=== PATIENT | female | born 1995 | race Caucasian/White ===

== ENCOUNTER 2017-04-07 12:03 | Emergency (ER) | payer OTHER ==
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
[2017-04-07] MEDS ORDERED: CLARITIN10 M2 (12:05)
[2017-04-07] MEDS ORDERED: BIRTH CONTROL PILL (12:05)
== END 2017-04-07 13:51 | disposition home or self-care (01) ==
LOC: SED 12:03
DX: S63.521A Sprain of radiocarpal joint of right wrist, initial encounter (principal); W51.XXXA Accidental striking against or bumped into by another person, initial encounter; Y92.009 Unspecified place in unspecified non-institutional (private) residence as the place of occurrence of the external cause
CPT/HCPCS: 29125; 73100; 99283